=== PATIENT | female | born 1945 | race Caucasian/White ===

== ENCOUNTER 2023-09-01 20:37 | Emergency (ER) | payer BC, SELFPAY ==
--- NOTE | ~2023-09-01 | XR_ITS ---
EXAMINATION: [id number] DATE: 09/01/2023 20:58 INDICATION: Right knee injury. Fall. TECHNIQUE: 2 views of right knee were obtained. COMPARISON: None. FINDINGS: Bone alignment is normal. No fracture. There is moderate osteoarthritis of medial compartme nt and mild osteoarthritis of lateral and patellofemoral compartments. No knee joint effusion. IMPRESSION: 1. Moderate right knee osteoarthritis. Reviewed, dictated and finalized at location E.
--- NOTE | ~2023-09-01 | CT_ITS ---
CT brain wo con Ordering provider: Donavan Gómez MD History: 78 years Female with . unwitnessed fall . Comparison: None. Technique: CT of the head without contrast. Radiation reduction technique utilized. DLP is 605.33mGy. FINDINGS: BRAIN PARENCHYMA AND CSF SPACES: Mild leukoaraiosis and diffuse cortical atrophy. Mild atheromatous d isease. No midline shift, mass effect or hemorrhage. The brain parenchyma and CSF spaces are otherwi se normal. VISUALIZED PARANASAL SINUSES: Bilateral ethmoid sinus disease. MASTOIDS: Well aerated. BONES: The bones appear intact. SOFT TISSUES: Visualized nasopharynx is normal. Superficial soft tissues are normal. IMPRESSION: No acute intracranial findings. Reviewed, dictated and finalized at location A.
--- NOTE | ~2023-09-01 | XR_ITS ---
XR elbow LT min 3V Ordering provider: Donavan Gómez History: . pain status post fall . Comparison: None. FINDINGS: BONES: No acute fracture or dislocation. JOINT SPACES: Osteoarthritic changes. SOFT TISSUES: Normal. No definite joint effusion. IMPRESSION: No acute osseous abnormality left elbow. Osteoarthritic changes of the elbow joint. Reviewed, dictated and finalized at location A.
--- NOTE | ~2023-09-01 | CT_ITS ---
CT cervical spine wo con Ordering provider: Donavan Gómez MD History: . unwitnessed fall . Comparison: None. Technique: CT of the cervical spine was performed without contrast. Sagittal and coronal reformatted images were also obtained and reviewed. Automated exposure control and iterative reconstruction agustín hnique were employed. The dose-length product was 204.91 mGy-cm. FINDINGS: VERTEBRAE: No subluxation or acute fracture. The occipital condyles are intact. DISC SPACES: Narrowing of the disc spaces C2-C3, C3-C4, C4-C5, C5-C6, C6-C7, C7-T1, T1-T2 and T2-T3. Multilevel facet joint disease. Multilevel uncovertebral joint osteoarthritic changes. Narrowing of t he right intervertebral foramen at the level of C3-C4 by osteophytes. Narrowing of the left intervert ebral foramen at the level of C5-C6 and C6-C7 by osteophytes.. Mild spinal canal stenosis at the leve l of C5-C6. PARASPINOUS SOFT TISSUES: Normal. IMPRESSION: No acute osseous abnormality cervical spine. Reviewed, dictated and finalized at location A.
--- NOTE | ~2023-09-01 | XR_ITS ---
XR ankle LT min 3V Ordering provider: Donavan Gómez MD History: . pain status post fall . Comparison: None. FINDINGS: BONES: No acute fracture or dislocation. Loss of volume of the talus is noted. Healing fractures in t he distal tibia and fibula. JOINT SPACES: Fusion of the ankle and subtalar joints is noted. Calcaneus spur. SOFT TISSUES: Normal. IMPRESSION: No acute osseous abnormality left ankle. Reviewed, dictated and finalized at location A.
[2023-09-01 20:40] VITALS: BP 145/69; PULSE 71; RESP 15; TEMP 37.1; O2SAT 100
--- NOTE | 2023-09-01 22:25 | ED.GENADULT ---
HPI - General Adult General Chief complaint: Fall Stated complaint: abd pain-post kidney stent Time Seen by Provider: 09/01/23 21:15 History of Present Illness HPI narrative: Patient is a 78-year-old female that presents emergency department with chief complaint of ground level fall patient has history of dementia and is normally alert oriented x1 has been on Lovenox status post a hip replacement on the right from a fracture patient fell out of her wheelchair and currently has no complaints. Related Data Allergies Allergy/AdvReac Type Severity Reaction Status Date / Time codeine AdvReac Unknown Verified 09/01/23 21:13 Review of Systems Review of Systems: A 10 system review of systems was completed on the patient and is negative except for what is stated in the HPI. Nursing and ancillary documentation was reviewed. Exam Narrative: GENERAL: Well-appearing, well-nourished, and in no acute distress. HEAD: Normocephalic, atraumatic. EYES: PERRLA and EOMI. ENT: Nares clear, no rhinorrhea or epistaxis. Mucous membranes moist. NECK: Supple. CHEST: Clear to auscultation. No respiratory distress. HEART: Regular rate and rhythm. No murmur heard. Normal peripheral pulses. ABDOMEN: Soft, nontender, nondistended, normal active bowel sounds. EXTREMITIES: Normal range of motion. No edema. SKIN: Warm, dry, no rash. Small abrasion of the right knee mild tenderness to left elbow and left ankle NEURO: No focal deficits. Alert and oriented x1 this is the patient's baseline. PSYCH: Normal mood and affect. Course Vital Signs Vital signs: Vital Signs Temperature 37.1 C 09/01/23 20:40 Pulse Rate 71 09/01/23 20:40 Respiratory Rate 15 09/01/23 20:40 Blood Pressure 145/69 H 09/01/23 20:40 Pulse Oximetry 100 09/01/23 20:40 Oxygen Delivery Room Air 09/01/23 20:40 Temperature 37.1 C 09/01/23 20:40 Pulse Rate 71 09/01/23 20:40 Respiratory Rate 15 09/01/23 20:40 Blood Pressure 145/69 H 09/01/23 20:40 Pulse Oximetry 100 09/01/23 20:40 Oxygen Delivery Room Air 09/01/23 20:40 Medical Decision Making MDM Narrative Medical decision making narrative: Differential diagnosis includes intracranial hemorrhage, cervical spine fracture, extremity fracture Vital Signs Vital Signs: Vital Signs Temperature 37.1 C 09/01/23 20:40 Pulse Rate 71 09/01/23 20:40 Respiratory Rate 15 09/01/23 20:40 Blood Pressure 145/69 H 09/01/23 20:40 Pulse Oximetry 100 09/01/23 20:40 Oxygen Delivery Room Air 09/01/23 20:40 Temperature 37.1 C 09/01/23 20:40 Pulse Rate 71 09/01/23 20:40 Respiratory Rate 15 09/01/23 20:40 Blood Pressure 145/69 H 09/01/23 20:40 Pulse Oximetry 100 09/01/23 20:40 Oxygen Delivery Room Air 09/01/23 20:40 Discharge Plan Discharge Clinical Impression: Fall from ground level, Abrasion of knee, right, Head injury Patient Disposition: NH Shelter/Asst Living Condition: Stable Instructions: Antibiotic Form, Head Injury (ED), Abrasion (ED) Follow-up/Referrals: Tracie,Danny Reis MD [Primary Care Provider] - Time of Disposition: 22:27
== END 2023-09-02 00:20 ==
PROVIDERS: Emergency Provider Emergency Medicine; PCP Internal Medicine
DX: S09.90XA Unspecified injury of head, initial encounter (principal); S80.211A Abrasion, right knee, initial encounter; Z96.651 Presence of right artificial knee joint; Z79.01 Long term (current) use of anticoagulants; M17.11 Unilateral primary osteoarthritis, right knee; W18.30XA Fall on same level, unspecified, initial encounter
CPT/HCPCS: 70450; 72125; 73080; 73560; 73610; 99284